=== PATIENT | male | born 1955 | race Caucasian/White ===

== ENCOUNTER → 2021-01-27 11:02 | Outpatient (CLI) | payer MEDICARE, OTHER, SELFPAY ==
--- NOTE | 2021-01-27 11:09 | DI.RAD.S_ITS ---
PROCEDURE: XR LUMBAR SPINE MIN 4V INDICATIONS: BACK PAIN TECHNIQUE: 4 views of the lumbar spine were acquired, including bilateral oblique views. COMPARISON: None. FINDINGS: Bones: 5 nonrib-bearing vertebrae are present. Levocurvature of the lumbar spine. No vertebral body compression fractures. No suspicious bony lesions. Mild to moderate facet arthrosis, most prominent at L5-S1. Predominantly anterior endplate osteophytosis is seen. Soft tissues: Overlying bowel gas pattern is normal. No suspicious soft tissue calcifications. Oblique images: No pars defects. IMPRESSION: No acute osseous abnormality. Dictated by: Zoltan Ryan M.D. on 01/27/2021 at 13:54 Approved by: Zoltan Ryan M.D. on 01/27/2021 at 13:56
== END ==
PROVIDERS: Referring Provider Physical Medicine & Rehabilitation; Visit Provider Physical Medicine & Rehabilitation
DX: M54.9 Dorsalgia, unspecified (principal); M17.0 Bilateral primary osteoarthritis of knee; E11.69 Type 2 diabetes mellitus with other specified complication; G91.9 Hydrocephalus, unspecified; M41.26 Other idiopathic scoliosis, lumbar region; M51.36 Other intervertebral disc degeneration, lumbar region; Z86.73 Personal history of transient ischemic attack (TIA), and cerebral infarction without residual deficits
CPT/HCPCS: 20611; 72110; 99214; J7318